=== PATIENT | female | born 1940 | race Caucasian/White ===

== ENCOUNTER → 2017-01-28 | Outpatient (CLI) | payer OTHER | LOC: MMPC 09:00 | DX: J20.9 Acute bronchitis, unspecified (principal); K21.9 Gastro-esophageal reflux disease without esophagitis; E03.9 Hypothyroidism, unspecified; E66.3 Overweight; M54.5 Low back pain; F32.9 Major depressive disorder, single episode, unspecified; R05 Cough; F51.01 Primary insomnia; G44.209 Tension-type headache, unspecified, not intractable | CPT/HCPCS: 99213; G0463 ==

== ENCOUNTER 2017-03-23 10:27 | Emergency (ER) | payer OTHER ==
[2017-03-23] MEDS ORDERED: ACETAMINOPHEN 500 MG TABLET PO ONE ×2 (11:21→11:24)
[2017-03-23 19:32] VITALS: RESP 16; TEMP 98
--- NOTE | 2017-03-24 08:58 | PDOC ---
Fall HPI - General Chief Complaint: Fall Stated Complaint: fell, hit head Date Seen by Provider: 03/23/17 Time Seen by Provider: 10:35 Source: POSITIVE: Patient Exam Limitations: POSITIVE: No limitations Nurse's Notes Reviewed & Considered: Yes - History of Present Illness Initial Comments: The patient is a 77 year old female. She states that she was washing her feet in her shower. She bent over and lost her balance and struck her forehead on the wall of the shower. Patient developed a large forehead hematoma. Incident occurred around 1000. Patient is on Plavix. She is not on any anticoagulants. Patient has history of having had a myocardial infarction and has hypotension and hypothyroidism. Patient states that she had a stroke in 2010. Have you received a tetanus shot in the past 10 years?: Unknown Body Location Affected: REPORTS: Head Timing: REPORTS: Abrupt Duration: 1 hour Severity: Moderate Context of Fall: REPORTS: Tripped, Lost Balance Location of Fall: REPORTS: Home Fell From Height (in feet): 0 Quality: REPORTS: "Pain" (Headache), Tenderness (Tenderness at site of hematoma , mid forehead) Associated Symptoms: REPORTS: Dazed, Recalls Injury, Recalls Coming to ER, Blow to Head. DENIES: Seizure, Trouble Breathing, Memory Impairment, Lost Consciousness Location of Injuries / Pain: REPORTS: Other (Forehead) Any Prior Injuries Related to Current Complaint?: No - Patient Home Medications Home Medications: Home Medications [place]-3 Fatty Acids [Fish Oil] 1,200 mg PO QAM 07/24/12 Vit B Cmplx & C#11/Ca/Dha/Q10 [Brain Pzoju-Ieg-Kd Q10 Tablet] 1 each PO PRN PRN tab 12/17/13 Coconut Oil 2 cap PO QOD cap 06/08/14 Ubidecarenone [Co Q-10] 1 cap PO QD #30 cap 03/23/15 Aspirin [Aspirin Ec] 1 tab PO QD #30 tab 10/04/15 Atorvastatin Calcium 1 tab PO QD #30 tab 10/04/15 Carvedilol 1 tab PO BID #60 tab 10/04/15 Cinnamon Bark/Chromium Picolin [Cinnamon Plus Chromium Capsule] 1 cap PO QD PRN #30 cap 12/08/15 Vitamin E Mixed [Vitamin E] 1 cap PO QD #30 cap 01/28/16 Diindolymethane 450 mg PO BID 120 Days 01/12/16 Benzonatate 1 cap PO TID PRN #50 cap 02/07/16 Cranberry Extract [Cranberry] 1 cap PO QD #30 cap 02/07/16 Diphenhydramine HCl 1 cap PO QD #30 tab 02/07/16 Vitamin A 1 cap PO QD #30 cap 02/07/16 Zinc 1 tab PO QD #30 tab 02/07/16 Losartan Potassium 1 tab PO DAILY tab 03/28/16 Cholecalciferol (Vitamin D3) [Vitamin D3] 1 cap PO QD #30 cap 07/31/16 Multivit-Min/FA/Lycopene/Lut [Centrum Silver Tablet] 1 tab PO QD PRN #30 tab Pantoprazole Sodium [Protonix] 1 tab PO BID #180 tab 11/02/16 Zolpidem Tartrate [Ambien] 0.5 tab PO QHS PRN #15 tab 11/07/16 Levothyroxine Sodium 1 tab PO QD #90 tab 12/17/16 Clonazepam 1 tab PO TID PRN #60 tab 01/07/17 Duloxetine HCl [Cymbalta] 1 cap PO QD #90 cap 02/04/17 Fluticasone/Vilanterol [Breo Ellipta 100-25 Mcg INH] 1 each IH DAILY 03/23/17 - Patient Allergies Allergies/Adverse Reactions: Allergies Allergy/AdvReac Type Severity Reaction Status Date / Time iodine [Iodine] Allergy Intermediate hives Verified 03/23/17 11:15 codeine AdvReac nausea Verified 03/23/17 11:15 Past Medical History - heen HEENT History: Cataracts, Other (please comment) Additional HEENT History: HX CATARACT SURGERY. DUE TO STROKE, HAS RIGHT EYE VISION PROBLEMS Cardiovascular History: Hypertension, Hyperlipidemia Additional Cardiovasular History: ANGIOPLASTY 2014- NO STENT NEEDED. TX WITH MEDICATION Respiratory History: Asthma Additional Respiratory History: CHRONIC BRONCHITIS Gastrointestinal History: GERD Additional Gastrointestinal History: DYSPHAGIA Genitourinary History: Recurrent UTI Endocrine History: Hyperthyroidism, Other (please comment) Musculoskeletal History: Arthritis, Osteoarthritis, Other (please comment) Prosthesis or Implant: Yes (RIGHT WRIST METAL IMPLANTS) Additional Musculoskeletal History: rotator cuff injuries, unrepaired Neurological History: CVA, TIA Additional Neurological History: 2010 Blood Disorders: Denies History Psychiatric History: Depression, Other (please comment) Additional 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 Cancer History: Skin In Past Year Been Physically Harmed or Verbally Threatened: No History of MDRO: No History of Other Communicable Diseases: No Tobacco Use: Never Smoker Alcohol Use: None Substance Use Type: None Previous Surgical History: Yes Type / Date of Surgery: APPY/ BLADDER SX/ JIM/ BRITTNEY BSO/ RECTAL PROLAPSE REPAIR / OVARIAN CYST/RIGHT WRIST/ANGIOPLASTY Anesthesia Reactions: No Malignant Hyperthermia: No Significant Family History: No pertinent family hx Past Medical History Reviewed: Reviewed - No Changes ROS - Limitations ROS Limitations: No Limitations Constitution: REPORTS: Denies Symptoms Cardiovascular: REPORTS: Denies Cardiac Symptoms Respiratory: REPORTS: Denies Resp Symptoms Neurological: REPORTS: Headache, Dizziness. DENIES: Confusion, Tingling, Numbness, Fainting, Difficulty Walking, Seizure Activity, Facial Asymmetry, Dysphagia, Weakness Gastrointestinal: REPORTS: Denies GI Symptoms Endocrine: REPORTS: Denies Symptoms Musculoskeletal: REPORTS: Denies MS Symptoms Genitourinary: REPORTS: Denies Symptoms Eyes: REPORTS: Denies Symptoms ENT: REPORTS: Denies Symptoms Skin: REPORTS: Excessive Bruising, Other (Large hematoma mid forehead. 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 NEGATIVE: No Evidence of Trauma (See diagram and as above) - HEENT HEENT: POSITIVE: Eyes Inspection Nml, Ears Inspection Nml, Nose Inspection Nml, Oral/Dental Inspect. Nml, Pharynx Inspect. Nml, PERRL, EOMI. NEGATIVE: Head Inspection Nml (Large hematoma forehead) - Pupil Size Pupil Size: 3 mm: Bilateral (PERRLA) - Neck Neck: POSITIVE: Non Tender, Painless ROM, Trachea Midline, Nexus Criteria Negative - Respiratory / CVS Respiratory / CVS: POSITIVE: Chest Non Tender, No Ecchymosis, Breath Sounds Normal, No Respiratory Distress, Heart Sounds Normal, Regular Rate/Rhythm Peripheral Pulses: Radial (R): 2+, Radial (L): 2+ - Abdomen Abdomen: Soft: (All Quadrants), Normal Bowel Sounds: (All Quadrants), Denies Tenderness: (All Quadrants), No Splenomegaly: (All Quadrants), No Hepatomegaly: (All Quadrants), No Guarding: (All Quadrants), No Rebound: (All Quadrants), No Palpable Pulse: (All Quadrants), No Palpabale Mass: (All Quadrants), No Distention: (All Quadrants), No Rigidity: (All Quadrants) - Neuro / Psych Neuro / Psych: POSITIVE: Oriented X3, 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, Motor Normal, Sensation Normal, Mood Appropriate, Affect Appropriate Reflexes: Radial (R): 2+, Radial (L): 2+ - Skin Skin: POSITIVE: Ecchymosis, See Diagram (Large hematoma forehead) - Back Back: POSITIVE: Normal Inspection, No CVA Tenderness, Non Tender, Painless ROM, No Vertebral Tenderness - Extremities Extremity Assessment: Non-Tender: (ALL), Normal ROM: (ALL), No Edema: (ALL), Normal Inspection: (ALL), No Swelling: (ALL) Joint Exam: POSITIVE: Joints Normal, Normal ROM, Normal Gait, Normal Weight Bearing Images - Head Head: 1 - Forehead hematoma Fall Progress - Results Reviewed by me Xrays/CTs/US Reviewed by me: Yes Discussed with Radiologist: Yes Radiology Findings: CT scan head without contrast normal per radiologist - Patient's Progress Pain Medication Addressed: POSITIVE: Yes (Recommended Tylenol) School/Work Release Addressed: POSITIVE: Not Applicable Re-Examine Time:: 12:16 Re-Examine Comment: Unchanged Status: POSITIVE: Unchanged, Re-Examined - Consult Counseled: POSITIVE: Patient, RE: Radiology Results, RE: DX, RE: Need for F/U Patient Care Time - Estimated PCT Patient Care Time (In Minutes): 45 Vital Signs - VS Reviewed Vital Signs Reviewed: Yes Discharge Clinical Impression: Hematoma of frontal scalp Discharge Disposition: Discharged to Home Condition: Fair Patient Instructions Given at Discharge: Hematoma (ED) Additional Instructions: You have a large contusion, known as a hematoma, to your forehead. CT scan does show evidence of your previous old stroke, but there is no evidence of any bleeding or skull fractures. I believe you're going to be fine. In a few days he might develop some facial bruising as the forehead hematoma unclots. Rest. Tylenol for discomfort. Cool compresses to your forehead. Return anytime if condition worsens in any way. Follow-up with your primary care provider. Follow Up With: GISELLE TRACEY [Primary Care Provider] - (Instructions as above. Return here anytime as necessary. Follow-up with your primary care provider.)
== END 2017-03-23 12:55 | disposition home or self-care (01) ==
LOC: ER 10:27
DX: S00.83XA Contusion of other part of head, initial encounter (principal); I25.2 Old myocardial infarction; I10 Essential (primary) hypertension; E03.9 Hypothyroidism, unspecified; R51 Headache; W18.2XXA Fall in (into) shower or empty bathtub, initial encounter
CPT/HCPCS: 70450; 99282

== ENCOUNTER → 2017-04-01 | Outpatient (CLI) | payer OTHER | LOC: MMPC 11:11 | DX: S06.0X0A Concussion without loss of consciousness, initial encounter (principal); I25.10 Atherosclerotic heart disease of native coronary artery without angina pectoris; J45.909 Unspecified asthma, uncomplicated; I67.9 Cerebrovascular disease, unspecified; K21.9 Gastro-esophageal reflux disease without esophagitis; E03.9 Hypothyroidism, unspecified; E78.5 Hyperlipidemia, unspecified; F32.9 Major depressive disorder, single episode, unspecified; E66.9 Obesity, unspecified; W18.2XXA Fall in (into) shower or empty bathtub, initial encounter; Y92.031 Bathroom in apartment as the place of occurrence of the external cause | CPT/HCPCS: 99213; G0463 ==